=== PATIENT | male | born 1955 | race Caucasian/White ===

== ENCOUNTER 2018-03-16 22:23 | Emergency (ER) | payer BC ==
[2018-03-16] MEDS: ASPIRIN 81 MG TAB PO (22:39)
[2018-03-16 22:48] LABS: ADD MAN DIFF? NO
[2018-03-16 22:51] LABS: BASOPHIL # 0.1 10^3/ul (0.0-0.1); BASOPHILS % 0.7 % (0.0-2.0); EOSINOPHILS # 0.1 10^3/ul (0.0-0.5); HEMATOCRIT 42.1 % (42.0-52.0); HEMOGLOBIN 14.7 g/dl (14.0-18.0); LYMPHOCYTES # 2.5 10^3/ul (0.8-2.9); LYMPHOCYTES % 31.5 % (15.0-51.0); MEAN CORPUSCULAR HEMOGLOBIN 28.8 pg (29.0-33.0); MEAN CORPUSCULAR HGB CONC 34.9 g/dl (32.0-37.0); MEAN CORPUSCULAR VOLUME 82.4 fl (82.0-101.0); MEAN PLATELET VOLUME 9.9 fl (7.4-10.4); MONOCYTE # 0.6 10^3/ul (0.3-0.9); MONOCYTES % 7.8 % (0.0-11.0); NEUTROPHIL # 4.7 10^3/ul (1.6-7.5); NEUTROPHILS % 58.6 % (39.0-77.0); PLATELET COUNT 226 10^3/UL (140-415); RED BLOOD COUNT 5.11 10^6/ul (4.70-6.10); RED CELL DISTRIBUTION WIDTH 12.6 % (11.5-14.5)
[2018-03-16 23:14] LABS: ANION GAP 15 (8-16); BLOOD UREA NITROGEN 25 mg/dl (7-20); CALCIUM 9.6 mg/dl (8.4-10.2); CARBON DIOXIDE 26 mmol/L (21-31); CHLORIDE 101 mmol/L (97-110); CREATININE 0.98 mg/dl (0.61-1.24); GLUCOSE 138 mg/dl (70-220); SODIUM 139 mmol/L (135-144)
[2018-03-16 23:19] LABS: POTASSIUM 2.8 mmol/L (3.5-5.1)
[2018-03-16 23:26] LABS: B-TYPE NATRIURETIC PEPTIDE 43 PG/ML (0-125); TROPONIN-I < 0.012 ng/ml (0.000-0.120)
[2018-03-17] MEDS: POTASSIUM CHLORIDE (SR) 20 MEQ TAB PO ×2 (00:21)
[2018-03-17] MEDS: KETOROLAC 30 MG INJ IV (00:52)
[2018-03-17 02:04] LABS: CREATINE KINASE 99 IU/L (23-200)
[2018-03-17 02:17] LABS: CK INDEX 0.7; CK-MB 0.65 ng/ml (0.0-2.4); TROPONIN-I < 0.012 ng/ml (0.000-0.120)
== END 2018-03-17 03:21 | disposition home or self-care (01) ==
LOC: E/R 03-17 03:21
DX: R07.9 Chest pain, unspecified (principal); E87.6 Hypokalemia; I10 Essential (primary) hypertension; Z79.01 Long term (current) use of anticoagulants; Z79.82 Long term (current) use of aspirin; Z98.61 Coronary angioplasty status
CPT/HCPCS: 36415; 71045; 80048; 82550; 82553; 83880; 84484; 85025; 93005; 99285-25